=== PATIENT | male | born 1950 | race Caucasian/White ===

== ENCOUNTER 2017-06-22 16:23 | Emergency (ER) | payer OTHER ==
[~2017-06-22] VITALS: Ht 188 cm; Wt 93.0 kg
--- NOTE | 2017-06-22 16:30 | NUR ---
Patient to ER bed 08 to gown for evaluation. Side rails up.
--- NOTE | 2017-06-22 16:40 | NUR ---
Pt brought by ,A&Ox4, pt c/o LAC on R middle thigh, skin pink and warm, cap refill <3, VS WNL, bleeding controlled with pressure dressing, VSS.
[2017-06-22] MEDS ORDERED: BACITRACIN 1 GM OINT TP ONE (16:45)
[2017-06-22] MEDS ORDERED: LIDOCAINE 1% 10 MG/ML, 20 ML MDV IJ ONE (16:45)
[2017-06-22] MEDS ORDERED: DIPH-TET-PERTUS Vaccine 0.5 ML VIAL (ADACEL) IM ONE (16:45)
--- NOTE | 2017-06-22 16:50 | NUR ---
Jaqui Matthews [employer] at bedside placing sutures on patient
[2017-06-22 18:31] VITALS: BP_SYST 120
--- NOTE | 2017-06-22 18:33 | NUR ---
Patient given written and verbal discharge instructions and verbalizes understanding. ER MD discussed with patient the results and treatment provided. Patient in stable condition. ID arm band removed. No prescription given. Patient educated on pain management and to follow up with PMD. Pain Scale 2/10 tolerable for pt. Opportunity for questions provided and answered.
== END 2017-06-22 18:30 | disposition home or self-care (01) ==
LOC: SED 16:23
DX: S71.111A Laceration without foreign body, right thigh, initial encounter (principal); W17.89XA Other fall from one level to another, initial encounter; Y93.89 Activity, other specified; Y92.89 Other specified places as the place of occurrence of the external cause; Y99.8 Other external cause status
CPT/HCPCS: 12002; 73552; 99284; J2001; 90715

== ENCOUNTER 2017-06-24 14:31 | Emergency (ER) | payer OTHER ==
[~2017-06-24] VITALS: Ht 188 cm; Wt 90.7 kg
[2017-06-24 14:49] VITALS: BP_SYST 141
--- NOTE | 2017-06-24 14:52 | NUR ---
Patient triaged and placed in waiting room. VSS and patient appears in no acute distress at this time. Accompanied by self, awaiting available bed, and MD notified of need for MSE.
--- NOTE | 2017-06-24 15:38 | NUR ---
Patient to ER HW2 for evaluation. Side rails up. Report given to
--- NOTE | 2017-06-24 15:40 | NUR ---
Patient to ER via triage for evaluation of wound check to right inner thigh. Patient was here on 06/22/17 for laceration repair with sutures and mahi. Patient is awake, alert and oriented in no acute distress. Patient denies pain at present. Patient able to ambulate with slow, steady gait to hallway to await MD evaluation. Will continue to observe and assess.
--- NOTE | 2017-06-24 16:17 | NUR ---
ER at bedside examining patient.
[2017-06-24 16:40] VITALS: BP_SYST 117
--- NOTE | 2017-06-24 16:40 | NUR ---
Patient given written and verbal discharge instructions and verbalizes understanding. ER MD discussed with patient the results and treatment provided. Patient in stable condition. ID arm band removed. No RX given. Patient educated on pain management and to follow up with PMD. Pain Scale 0. Opportunity for questions provided and answered. Wound cleansed and redressed with non-stick pad and paper tape. Patient left ER ambulating with slow, steady gait in no acute distress. No adverse reaction from dressing change/wound check.
== END 2017-06-24 16:40 | disposition home or self-care (01) ==
LOC: SED 14:31
DX: S71.111D Laceration without foreign body, right thigh, subsequent encounter (principal); X58.XXXD Exposure to other specified factors, subsequent encounter
CPT/HCPCS: 99283

== ENCOUNTER 2017-07-02 08:32 | Emergency (ER) | payer OTHER ==
[~2017-07-02] VITALS: Ht 188 cm; Wt 90.7 kg
[2017-07-02 08:41] VITALS: BP_SYST 139
[2017-07-02 09:10] VITALS: BP_SYST 129
== END 2017-07-02 09:10 | disposition home or self-care (01) ==
LOC: SED 08:32
DX: S71.111D Laceration without foreign body, right thigh, subsequent encounter (principal); X58.XXXD Exposure to other specified factors, subsequent encounter
CPT/HCPCS: 99283